=== PATIENT | female | born 1980 | race Hispanic/Latino ===

== ENCOUNTER 2018-08-17 17:58 | Emergency (ER) | payer BC ==
[~2018-08-17] VITALS: Ht 172.7 cm; Wt 86.2 kg
--- OUTSIDE RECORDS SUMMARY | 2018-08-17 18:01 | XMS REPORT | Clinical Summary ---
Author Author [facility] Address Unknown Phone Unavailable Care Team Providers Care Creche Attendant Name Role Phone Edin Dior MD PCP Unavailable Allergies No Known Allergies Medications End Date Status Medication Sig Dispensed Refills Start Date Active albuterol (ACCUNEB) 0.63 Take 3 mLs 75 mL 3 mg/3 mL nebulizer (0.63 mg 3 solution total) by nebulization every 4 (four) hours as needed for Wheezing. Active omeprazole (PRILOSEC) 20 TAKE 1 90 capsule 0 MG capsule CAPSULE BY 7 MOUTH DAILY Active montelukast (SINGULAIR) TAKE 1 TABLET 90 tablet 0 10 mg tablet BY MOUTH 7 EVERY DAY Active ADVAIR DISKUS 250-50 INHALE 1 PUFF 180 Inhaler 1 mcg/dose diskus inhaler BY MOUTH 7 TWICE DAILY Active Problems Patient Care Coordination Note Office Manager Executive Assistant No Abnormal Paps, Never Mammo Cc Office Manager Executive Assistant Beth Kwong Children 15, 11, 4 Problem Noted Date Family history of cancer 06/30/2015 Overview: Father prostate age 50.MGF age 65, PGM with unknown "stomach" cancer Left lower quadrant pain 06/30/2015 Overview: Premenstrual pain over a few months. Early 2015 Moderate persistent asthma 07/02/2013 Overview: persistent sx, now totally controlled with RLQ abdominal pain 07/02/2013 Overview: On and off, feels like gas. Wakes up in night, many times cannot pass. Discussed follow up with PUBLIC RELATIONS WRITER for abd pain. PAP 2015 or so Asthma exacerbation 03/25/2012 Overview: 03/2011 Hyperlipidemia, mixed Diabetes type 2, controlled Overview: A1c 6.4 2013--no follow up Gestational diabetes. 2010 Family History Medical History Relation Name Comments Cancer Father prostate Diabetes Father Diabetes Mother Relation Name Status Comments Brother Alive Daughter Alive Father Alive Mother Alive Sister Alive x2 Son Alive Social History Date Tobacco Use Types Packs/Day Years Used Quit: 06/29/2014 Former Smoker Cigarettes Alcohol Use Drinks/Week oz/Week Comments Yes occasionally Sex Assigned at Date Recorded Not on file Industry Job Start Date Occupation Not on file Not on file Not on file Travel End Travel History Travel Start No recent travel history available. Last Filed Vital Signs Not on file Plan of Treatment Health Maintenance Due Date Last Done Comments INFLUENZA VACCINE 11/11/2017 Results Not on fileafter 08/16/2017 Insurance Payer Benefit Subscriber ID Type Phone Address Plan / Group [employer] - [employer] C[employer] PPO xxxxxxxxxxx PPO
--- OUTSIDE RECORDS SUMMARY | 2018-08-17 18:02 | XMS REPORT | Encounter Summary ---
Author Organization Unknown Address [address] [place] [address] Phone [phone] Care Team Providers Care Egg Worker Name Role Phone Edin Dior MD 3 [phone] Reason for Visit Left Medical Complaint Instructions 1. Serous otitis media fluticasone 50 mcg/actuation nasal spray,suspension amoxicillin 875 mg tablet Discussion Note Pt is in NAD; Verbalizes understanding of all instructions with no questions at this time. Patient educational handouts: No information available. Plan of Care Patient Instructions Alternate with Ibuprofen and acetaminophen every 4hrs as needed for pain Proper hydration and rest. Take antibiotics with food and recommend start a probiotic to avoid GI discomfort. Take fluticasone as needed for nasal/ear congestion. Paoli one spray in each nostril twice a day. Take a warm, steamy shower, blow your nose thereafter, and spray in each nostril. Tilt your head up for about 10 seconds and breath through your mouth. Do not sniff or snort the medication in or else the medication will go to your throat and not be absorbed appropriately. Take medications as prescribed and follow up with a PCP within 2-3 if symptoms worsen as discussed. Reminders Provider Appointments None recorded. Lab None recorded. Referral None recorded. Procedures None recorded. Surgeries None recorded. Imaging None recorded. Medications Name Start Date Advair Diskus 250 mcg-50 mcg/dose powder for inhalation INHALE 1 PUFF PO BID amoxicillin 875 mg tablet Take 1 tablet every 12 hours by oral route as directed for 10 days. fluticasone 50 mcg/actuation nasal spray,suspension Paoli 1 spray every day by intranasal route as needed for 10 days. montelukast 10 mg tablet TK 1 T PO QD omeprazole 20 mg capsule,delayed release TK 1 C PO D ProAir HFA 90 mcg/actuation aerosol inhaler INHALE 2 PUFFS BY MOUTH EVERY 6 HOURS NEEDED FOR WHEEZING OR SHORTNESS OF BREATH (OR COUGH) Medications Administered None recorded. Vitals Height Weight BMI Blood Pressure 5 ft 8 in 195 lbs 29.6 133/84 Lab Results None recorded. Allergies Code Code System Name Reaction Severity Onset NKDA Problems Name Status Onset Date Source Streptococcal Sore Throat Active Encounter Procedures None recorded. Vaccine List Vaccine Type influenza, unspecified formulation 11/11/2015 MMR 04/02/20150.5 mL 05/02/20150.5 mL Tdap 08/18/20150.5 mL varicella 04/02/20150.5 mL 05/02/20150.5 mL Social History Smoking Status Never Smoker Past Encounters 06/07/2016 Serous Otitis Media Meagan Vinson, [facility]: [address] [place] [address], Ph. History of Present Illness Ear Complaint Reported By: Patient HPI: Location: left. Quality: ears feel full/plugged, muffled, dull, aching. Severity: continuous. Duration: constant; 1 week. Onset/Timing: abrupt onset. Context: no sick contacts, no recent swimming/water in ear, no exposure to second hand smoke, no head trauma, not grinding teeth, no recent air travel. Modifying factors: hurts to lie on, or pull on ear, hurts to chew, OTC medication, nothing gives relief. Associated Symptoms: no discharge from the ears, no nose/sinus problems, no ringing in the ears, no fever, no chills, no dizziness, no vertigo, no headache, no muscle aches, popping noise in the ears, earache Review of Systems:ROS as noted in the HPI Review of Systems Basic Reported By: Patient Physical Exam Adult Basic, Adult Female Complete Reported By: Patient Constitutional: General Appearance: healthy-appearing, well-nourished, well-developed. Level of Distress: NAD. Ambulation: ambulating normally Psychiatric: Mental Status: active and alert. Orientation: to time, to place, to person Skv-Tqom-Gipkn-Throat: Ears: no lesions on external ear, no outer ear tenderness, EACs clear, TM erythematous, TM bulging, middle ear fluid. Hearing: no hearing loss. Nose: no lesions on external nose, nares patent, no septal deviation, nasal passages clear, no sinus tenderness, no nasal discharge. Lips, Teeth, and Gums: no mouth or lip ulcers, no bleeding gums, normal dentition. Oropharynx: moist mucous membranes, no erythema, no exudates, tonsils not enlarged Neck: Neck: supple. Lymph Nodes: no cervical LAD Lungs: Respiratory effort: no dyspnea, no tachypnea, no use of accessory muscles, no intercostal retractions. Auscultation: breath sounds normal Cardiovascular: Heart Auscultation: RRR, no murmurs Neurologic: Gait and Station: normal gait, normal station
--- OUTSIDE RECORDS SUMMARY | 2018-08-17 18:02 | XMS REPORT | Encounter Summary ---
Author Organization Unknown Address [address] [place] [address] Phone [phone] Reason for Visit Medical Complaint; body aches, sore throat, swollen tonsils yesterday pm Instructions 1. Streptococcal sore throat penicillin V potassium 500 mg tablet strep throat: care instructions rapid strep group A, throat Discussion Note: None recorded. Plan of Care Patient Instructions Take antibiotic as prescribed. Handwashing. Increase fluid intake and plenty of rest. May take tynenol/motrin for pain. may use cloraseptic throat spray for sore throat. Gargles warm salt water, cepacol. Throw away old toothbrush after 2 days of antibiotic. Avoid sharing drinks/utensils. If no improvement in 3 days, or worsening of symptoms, see primary care physician or call clinic. Reminders Provider Appointments None recorded. Lab Rapid Strep Group a, Throat 07/06/2015 [facility] Referral None recorded. Procedures None recorded. Surgeries None recorded. Imaging None recorded. Medications Name Start Date penicillin V potassium 500 mg tablet Take 1 tablet(s) every 12 hours by oral route as directed for 10 days. Medications Administered None recorded. Vitals Height Weight BMI Blood Pressure 5 ft 8 in 193 lbs 29.3 130/82 Lab Results Date Name Result Description Value Range Status Rapid Strep Group a, Throat Result positive Swab Location Left and Right tonsillar pillars Allergies Name Reaction Severity Onset NKDA Problems Name Status Onset Date Source Streptococcal Sore Throat Active Encounter Procedures None recorded. Vaccine List Vaccine Type MMR 04/02/20150.5 mL 05/02/20150.5 mL varicella 04/02/20150.5 mL 05/02/20150.5 mL Social History Smoking Status Never Smoker Past Encounters 07/06/2015 Streptococcal Sore Throat Catherine Samaniego, [employer]: [address] [place] [address], Ph. History of Present Illness Throat-Oral Complaint Reported By: Patient HPI: Location: throat. Quality: sore throat. Severity: pain level 9/10. Duration: 1 days. Onset/Timing: sudden. Context: no sick contacts, no foreign travel, non-smoker. Modifying factors: OTC medication. Associated Symptoms: no sputum production, no shortness of breath, no wheezing, no change in number of pillows needed to sleep at night, no sweats, no significant weight gain, no significant weight loss, no morning cough, no vomiting, no diarrhea, no rash, no nausea, sore throat Review of Systems Basic Reported By: Patient Constitutional: Constitutional: no fever Eyes: Eyes: no eye complaints Kact-Pnli-Jqjsm-Throat: Ears: no ear complaints. Nose: no nose/sinus problems. Mouth/Throat: no bleeding gums, no mouth complaints, no teeth problems, sore throat Cardiovascular: Cardiovascular: no chest pain, no shortness of breath, no known heart murmur Respiratory: Respiratory: no cough, no wheezing, no shortness of breath Gastrointestinal: Gastrointestinal: no abdominal pain, no vomiting / diarrhea Genitourinary: Genitourinary: no urinary complaints, no discharge Musculoskeletal: Musculoskeletal: no muscle weakness, no arthralgias/joint pain, no back pain, muscle aches Skin: Skin: no abnormal / changing mole, no jaundice, no rashes Neurologic: Neurologic: no loss of consciousness, no weakness, no numbness, no seizures, no dizziness, no headaches Physical Exam Adult Basic, Adult Female Complete Constitutional: General Appearance: healthy-appearing, well-nourished, well-developed, overweight. Level of Distress: NAD. Ambulation: ambulating normally Psychiatric: Mental Status: active and alert. Orientation: to time, to place, to person Eyes: Lids and Conjunctivae: non-injected, no discharge, no pallor. Pupils: PERRLA. Corneas: grossly intact. EOM: EOMI. Lens: clear. Sclerae: non-icteric. Vision: acuity grossly intact Fre-Myif-Wnigw-Throat: Ears: no lesions on external ear, no outer ear tenderness, EACs clear, TMs clear. Hearing: no hearing loss. Nose: no lesions on external nose, nares patent, no septal deviation, nasal passages clear, no sinus tenderness, no nasal discharge. Lips, Teeth, and Gums: no mouth or lip ulcers, no bleeding gums, normal dentition. Oropharynx: moist mucous membranes, erythema, exudates, tonsils enlarged 2+ Neck: Neck: supple, trachea midline, no masses, FROM. Lymph Nodes: no supraclavicular LAD, anterior cervical LAD. Thyroid: no enlargement, non-tender, no nodules Lungs: Respiratory effort: no dyspnea, no tachypnea, no use of accessory muscles, no intercostal retractions. Auscultation: breath sounds normal Cardiovascular: Heart Auscultation: RRR, no murmurs. Neck vessels: no carotid bruits
--- OUTSIDE RECORDS SUMMARY | 2018-08-17 18:02 | XMS REPORT | Encounter Summary ---
Author Organization Unknown Address [address] [place] [address] Phone [phone] Reason for Visit Screening - TB; tb test Instructions 1. Tuberculosis screening PPD (purified protein derivative), skin test - Patient was advised to follow-up with [facility] within 48-72 hours. Tubersol 5 tub. unit/0.1 mL intradermal injection solution Discussion Note: None recorded. Patient educational handouts: No information available. Plan of Care Patient Instructions Please RT RC in 48-72 hours to have your PPD read. If not, it will be invalid and you will need to have it re placed. Reminders Provider Appointments None recorded. Lab PPD (Purified Protein Derivative), Skin Test 08/31/2015 [facility] Referral None recorded. Procedures None recorded. Surgeries None recorded. Imaging None recorded. Medications Name Start Date Advair Diskus 250 mcg-50 mcg/dose powder for inhalation INHALE 1 PUFF BY MOUTH VIA INHALER 2 (TWO) TIMES DAILY. montelukast 10 mg tablet omeprazole 20 mg capsule,delayed release penicillin V potassium 500 mg tablet ProAir HFA 90 mcg/actuation aerosol inhaler INHALE 2 PUFFS BY MOUTH EVERY 6 HOURS NEEDED FOR WHEEZING OR SHORTNESS OF BREATH (OR COUGH) Tubersol 5 tub. unit/0.1 mL intradermal injection solution Medications Administered Name Date Tubersol 5 tub. unit/0.1 mL intradermal injection solution Take 0 mL by intradermal route. [id number] Vitals None recorded. Lab Results Date Name Result Description Value Range Status 08/23/2015 Rubella IgG Ab, Quant Immunoassay, Serum or Plasma Rubella Antibodies, IgG 3.39 index immune >0.99 index Final 08/23/2015 Varicella-zoster Igg Ab Screen, Serum Varicella Zoster IgG 1431 index immune >165 index Final 08/23/2015 Mumps Virus IgG Ab, Quant, Immunoassay, Serum Mumps Abs, IgG 98.8 AU/mL immune >10.9 AU/mL Final 08/23/2015 Measles Virus IgG Ab, Quant, Immunoassay, Serum Below Low Normal Rubeola Ab, IgG <25.0 AU/mL immune >29.9 AU/mL Final 08/18/2015 Hepatitis C Ab, Rfpqjp-ni-zqlwni, Serum or Plasma Hep C Virus Ab <0.1 S/co ratio 0.0-0.9 S/co ratio Final Allergies Name Reaction Severity Onset NKDA Problems Name Status Onset Date Source Streptococcal Sore Throat Active Encounter Procedures None recorded. Vaccine List Vaccine Type MMR 04/02/20150.5 mL 05/02/20150.5 mL Tdap 08/18/20150.5 mL varicella 04/02/20150.5 mL 05/02/20150.5 mL Social History Smoking Status Never Smoker Past Encounters 08/31/2015 Tuberculosis Screening TERENCE Cristina: [address] [place] [address], Ph. 08/23/2015 Screening for Disorder TERENCE Starr: [address] [place] [address], Ph. 08/18/2015 Immunization; Screening for Disorder; Counseling TERENCE Starr: [address] [place] [address], Ph. History of Present Illness Screening Request - TB Reported By: Patient Screening Request: BCG No prior BCG vaccination. PPD No past history of postive TB skin test (PPD), No previous severe local reaction to TB skin test (PPD). OTHER No prior vaccines within last month Review of Systems Screening - TB Reported By: Patient Symptoms during past year > 2 weeks, NOT associated with specific illness?: unexplained or low grade fever No fever. night sweats No night sweats. unexplained weight loss > 5 lbs No unexplained weight loss. persistent cough No persistent cough. shortness of breath No shortness of breath. coughing up blood (hemoptysis) No coughing up blood (hemoptysis). unusual fatigue No unusual fatigue. loss of appetite No loss of appetite. swollen neck glands No swollen neck glands Physical Exam Screening General Appearance: General: well-developed, well-nourished, no acute distress
--- OUTSIDE RECORDS SUMMARY | 2018-08-17 18:02 | XMS REPORT | Encounter Summary ---
Author Organization Unknown Address [address] [place] [address] Phone [phone] Care Team Providers Care Maxillofacial Surgeon Name Role Phone Vijaya Hinds PRODUCTION REPRODUCTION MANAGER 3 [phone] Reason for Visit Medical Complaint Instructions 1. Streptococcal sore throat strep throat: care instructions penicillin V potassium 500 mg tablet rapid strep group A, throat 2. Cough cough: care instructions benzonatate 200 mg capsule 3. Body mass index 25-29 - overweight body mass index: care instructions 4. Elevated blood-pressure reading without diagnosis of hypertension elevated blood pressure: care instructions Discussion Note Pt is in NAD; Verbalizes understanding of all instructions with no questions at this time. Plan of Care Patient Instructions Stop mucinex cold. Alternate with Ibuprofen and acetaminophen every 4-6 hrs as needed for pain/fever/headache/sore throat. Proper hydration and rest. Take antibiotics with food and recommend start a probiotic to avoid GI discomfort. Do not share any utensils/cups, no kissing and change toothbrush after 24-48 hrs of antibiotic use. Take benzonatate for cough as directed. Take medications as prescribed. Follow up with your PCP within 2-3 days if symptoms worsen as discussed. Recommend follow a low sodium/fat/carb diet and exercise 30-45 mins/d 3-4 days a week once symptoms resolve. Recommend monitor BP at home and document, bring BP log to PCP for review. Reminders Provider Appointments None recorded. Lab Rapid Strep Group a, Throat 12/24/2017 [facility] Referral None recorded. Procedures None recorded. Surgeries None recorded. Imaging None recorded. Medications Name Start Date Advair Diskus 250 mcg-50 mcg/dose powder for inhalation INHALE 1 PUFF PO BID benzonatate 200 mg capsule Take 1 capsule 3 times a day by oral route as needed. famotidine 40 mg tablet Hemocyte-Plus 106 mg iron-1 mg capsule TK 1 C PO QD montelukast 10 mg tablet TK 1 T PO QD omeprazole 20 mg capsule,delayed release TK 1 C PO D penicillin V potassium 500 mg tablet Take 1 tablet every 12 hours by oral route as directed for 10 days. Medications Administered None recorded. Vitals Height Weight BMI Blood Pressure 5 ft 8 in 193 lbs 29.3 kg/m2 (1) 120/76 mm[Hg] (2) 120/76 mm[Hg] Lab Results Date Name Specimen Result Interpretation Description Value Range Status Address Rapid Strep Group a, Throat Result positive [facility]: [address] [place] [address] Swab Location Left and Right tonsillar pillars [facility]: [address] [place] [address] Allergies Code Code System Name Reaction Severity Status Onset NKDA Problems Name Status Onset Date Source Streptococcal Sore Throat Active 12/24/2017 Body Mass Index 25-29 - Overweight Active 12/24/2017 Anemia Active 12/24/2017 Asthma Active 12/24/2017 Gastroesophageal Reflux Disease Active 12/24/2017 Cough Active 12/24/2017 Elevated Blood-pressure Reading without Diagnosis of Hypertension Active 12/24/2017 Procedures None recorded. Vaccine List Vaccine Type influenza, unspecified formulation 11/12/2015 11/11/2017 MMR 04/02/20150.5 mL 05/02/20150.5 mL Tdap 08/18/20150.5 mL varicella 04/02/20150.5 mL 05/02/20150.5 mL Social History Smoking Status Never Smoker Past Encounters 12/24/2017 Streptococcal Sore Throat; Cough; Body Mass Index 25-29 - Overweight; Elevated Blood-pressure Reading without Diagnosis of Hypertension Meagan Vinson, [employer]-C: [address] [place] [address], Ph. History of Present Illness Throat-Oral Complaint Reported By: Patient HPI: Location: throat. Quality: sore throat, dry or hacking cough. Severity: moderate, pain level 3/10. Duration: 1 days. Onset/Timing: sudden. Context: no sick contacts, no foreign travel, non-smoker. Modifying factors: OTC medication. Associated Symptoms: no fever, no headache, no body aches, no sputum production, no shortness of breath, no wheezing, no change in number of pillows needed to sleep at night, no sweats, no significant weight gain, no significant weight loss, no morning cough, no vomiting, no diarrhea, no rash, no nausea, sore throat; dry cough Ssfjmcm-Naipl-Qmt Reported By: Patient HPI: Duration: 1 days. Context: no ill contacts, no tick/insect bites, no recent travel, no new medications. Associated Symptoms: no fever/chills, no headache, no muscle aches, no rash, no lethargy, cough; sore throat. Modifying Factors nothing gives relief Note:
Review of Systems:ROS as noted in the HPI Review of Systems Basic Reported By: Patient Physical Exam Adult Basic, Adult Female Complete Reported By: Patient Constitutional: General Appearance: healthy-appearing, well-nourished, well-developed, overweight. Level of Distress: NAD. Ambulation: ambulating normally Psychiatric: Mental Status: active and alert. Orientation: to time, to place, to person Eyes: Lids and Conjunctivae: non-injected, no discharge, no pallor. Corneas: grossly intact. Lens: clear Tgs-Jqti-Rkxcx-Throat: Ears: no lesions on external ear, no outer ear tenderness, EACs clear, TMs clear. Nose: no lesions on external nose, nares patent, no septal deviation, nasal passages clear, no sinus tenderness, no nasal discharge. Lips, Teeth, and Gums: no mouth or lip ulcers, no bleeding gums, normal dentition. Oropharynx: moist mucous membranes, no exudates, tonsils not enlarged, erythema Neck: Lymph Nodes: no cervical LAD Lungs: Respiratory effort: no dyspnea, no tachypnea, no use of accessory muscles, no intercostal retractions. Auscultation: breath sounds normal Cardiovascular: Heart Auscultation: RRR, no murmurs Neurologic: Gait and Station: normal gait, normal station
--- OUTSIDE RECORDS SUMMARY | 2018-08-17 18:02 | XMS REPORT | Encounter Summary ---
Author Organization Unknown Address [address] [place] [address] Phone [phone] Reason for Visit Screening - Lab; MMR and varicella titer. Instructions 1. Screening for disorder mumps virus IgG Ab, quant, immunoassay, serum rubella IgG Ab, quant immunoassay, serum or plasma measles virus IgG Ab, quant, immunoassay, serum varicella-zoster igg Ab screen, serum Discussion Note: None recorded. Patient educational handouts: No information available. Plan of Care Reminders Provider Appointments None recorded. Lab Mumps Virus IgG Ab, Quant, Immunoassay, Serum 08/23/2015 [facility] Rubella IgG Ab, Quant Immunoassay, Serum or Plasma 08/23/2015 [facility] Measles Virus IgG Ab, Quant, Immunoassay, Serum 08/23/2015 [facility] Varicella-zoster Igg Ab Screen, Serum 08/23/2015 [facility] Referral None recorded. Procedures None recorded. Surgeries None recorded. Imaging None recorded. Medications None recorded. Medications Administered None recorded. Vitals None recorded. Lab Results None recorded. Allergies Name Reaction Severity Onset NKDA Problems Name Status Onset Date Source Streptococcal Sore Throat Active Encounter Procedures None recorded. Vaccine List Vaccine Type MMR 04/02/20150.5 mL 05/02/20150.5 mL varicella 04/02/20150.5 mL 05/02/20150.5 mL Social History Smoking Status Never Smoker Past Encounters 08/23/2015 Screening for Disorder Catherine Samaniego, [facility]: [address] [place] [address], Ph. History of Present Illness Lab Request Reported By: Patient HPI: Lab Request (normal) no symptoms, No medical complaints Review of Systems Basic Reported By: Patient Constitutional: Constitutional: no fever Physical Exam Screening General Appearance: General: well-developed, well-nourished, no acute distress
--- OUTSIDE RECORDS SUMMARY | 2018-08-17 18:02 | XMS REPORT | Continuity of Care Document ---
Author Author [employer] Address Unknown Phone Unavailable Care Team Providers Care Machine Repairer Name Role Phone [facility] Unavailable Unavailable Problems Problem Status Onset Date Classification Date Reported Comments Source Elevated blood-pressure reading without diagnosis of hypertension 12/24/2017 Diagnosis 12/24/2017 [facility] Body mass index 25-29 - overweight 12/24/2017 Diagnosis 12/24/2017 [facility] Streptococcal sore throat 12/24/2017 Diagnosis 12/24/2017 [facility] Streptococcal Sore Throat 12/24/2017 Problem 12/24/2017 [facility] Body Mass Index 25-29 - Overweight 12/24/2017 Problem 12/24/2017 [facility] Anemia 12/24/2017 Problem 12/24/2017 [facility] Asthma 12/24/2017 Problem 12/24/2017 [facility] Gastroesophageal Reflux Disease 12/24/2017 Problem 12/24/2017 [facility] Cough 12/24/2017 Problem 12/24/2017 [facility] Elevated Blood-pressure Reading without Diagnosis of Hypertension 12/24/2017 Problem 12/24/2017 [facility] Serous otitis media 06/07/2016 Diagnosis 06/07/2016 [facility] Tuberculosis screening 08/31/2015 Diagnosis 08/31/2015 [facility] Screening for disorder 08/18/2015 Diagnosis 08/31/2015 [facility] Immunization 08/18/2015 Diagnosis 08/31/2015 [facility] Counseling 08/18/2015 Diagnosis 08/31/2015 [facility] Medications Medication Details Route Status Patient Instructions Ordering Provider Order Date Source Penicillin V Potassium 500 MG Oral Tablet penicillin V potassium 500 mg tablet Take 1 tablet every 12 hours by oral route as directed for 10 days. Active [facility] Fluticasone propionate 0.25 MG/ACTUAT / salmeterol 0.05 MG/ACTUAT Dry Powder Inhaler Advair Diskus 250 mcg-50 mcg/dose powder for inhalation INHALE 1 PUFF PO BID Active [facility] montelukast 10 MG Oral Tablet montelukast 10 mg tablet TK 1 T PO QD Active [facility] Omeprazole 20 MG Delayed Release Oral Capsule omeprazole 20 mg capsule,delayed release TK 1 C PO D Active [facility] 200 ACTUAT Albuterol 0.09 MG/ACTUAT Metered Dose Inhaler [ProAir] ProAir HFA 90 mcg/actuation aerosol inhaler INHALE 2 PUFFS BY MOUTH EVERY 6 HOURS NEEDED FOR WHEEZING OR SHORTNESS OF BREATH (OR COUGH) Active [facility] Purified Protein Derivative of Tuberculin 50 UNT/ML Injectable Solution [Tubersol] Tubersol 5 tub. unit/0.1 mL intradermal injection solution Active [facility] Amoxicillin 875 MG Oral Tablet amoxicillin 875 mg tablet Take 1 tablet every 12 hours by oral route as directed for 10 days. Active [facility] Fluticasone propionate 0.05 MG/ACTUAT Metered Dose Nasal [place] fluticasone 50 mcg/actuation nasal spray,suspension [place] 1 spray every day by intranasal route as needed for 10 days. Active [facility] benzonatate 200 MG Oral Capsule benzonatate 200 mg capsule Take 1 capsule 3 times a day by oral route as needed. Active [facility] Famotidine 40 MG Oral Tablet famotidine 40 mg tablet Active [facility] Hemocyte-Plus 106 mg iron-1 mg capsule Hemocyte-Plus 106 mg iron-1 mg capsule TK 1 C PO QD Active [facility] Allergies, Adverse Reactions, Alerts No Known Medication Allergies Immunizations Immunization Date Given Site Status Last Updated Comments Source influenza, unspecified formulation 11/11/2017 completed [facility] influenza, unspecified formulation 11/12/2015 completed [facility] Tdap 08/18/2015 completed [facility] varicella 05/02/2015 completed [facility] MMR 05/02/2015 completed [facility] varicella 04/02/2015 completed [facility] MMR 04/02/2015 completed [facility] Results Order Name Results Value Reference Range Date Interpretation Comments Source RESULT positive 12/24/2017 [facility] SWAB LOCATION Left and Right tonsillar pillars 12/24/2017 [facility] Measles virus IgG Ab [Units/volume] in Serum by Immunoassay Measles virus IgG Ab [Units/volume] in Serum by Immunoassay <25.0 immune >29.9 08/25/2015 below low normal [facility] Mumps virus IgG Ab [Units/volume] in Serum by Immunoassay Mumps virus IgG Ab [Units/volume] in Serum by Immunoassay 98.8 immune >10.9 08/25/2015 [facility] Rubella virus IgG Ab [Units/volume] in Serum by Immunoassay Rubella virus IgG Ab [Units/volume] in Serum by Immunoassay 3.39 immune >0.99 08/25/2015 [facility] Varicella zoster virus IgG Ab [Units/volume] in Serum Varicella zoster virus IgG Ab [Units/volume] in Serum by Immunoassay 1431 immune >165 08/25/2015 [facility] Hepatitis C virus Ab Signal/Cutoff in Serum or Plasma by Immunoassay Hepatitis C virus Ab Signal/Cutoff in Serum or Plasma by Immunoassay <0.1 0.0 - 0.9 08/20/2015 [facility] RESULT positive 07/06/2015 [facility] SWAB LOCATION Left and Right tonsillar pillars 07/06/2015 [facility] Pathology Reports No Data Provided for This Section Diagnostic Reports No Data Provided for This Section Consultation Notes No Data Provided for This Section Discharge Summaries No Data Provided for This Section History and Physicals No Data Provided for This Section Vital Signs Vital Sign Value Date Comments Source Diastolic (mm Hg) 76 12/24/2017 [facility] Height 68 12/24/2017 [facility] Systolic (mm Hg) 120 12/24/2017 [facility] Weight 193 12/24/2017 [facility] Diastolic (mm Hg) 84 06/07/2016 [facility] Height 68 06/07/2016 [facility] Systolic (mm Hg) 133 06/07/2016 [facility] Weight 195 06/07/2016 [facility] Diastolic (mm Hg) 82 07/06/2015 [facility] Height 68 07/06/2015 [facility] Systolic (mm Hg) 130 07/06/2015 [facility] Weight 193 07/06/2015 [facility] Encounters Location Location Details Encounter Type Encounter Number Reason For Visit Attending Provider ADM Date DC Date Status Source [place] - [facility] - [id number] Samaniego, PLUMBING INSPECTOR: [address] [place] [address], Ph. [id number] Catherine Samaniego 07/06/2015 [facility] [place] [facility] - [id number] Samaniego, PLUMBING INSPECTOR: [address] [place] [address], Ph. [id number] Catherine Danette 08/18/2015 [facility] [place] [facility] - [id number] Catherine Samaniego, PLUMBING INSPECTOR: [address], [place] [address], Ph. [id number] Catherine Danette 08/23/2015 [facility] [place] [facility] - [id number] Catherine Samaniego, PLUMBING INSPECTOR: [address], [place] [address], Ph. [id number] Catherine Danette 08/23/2015 [facility] [place] [facility] - [id number] Janamaribeth Copeland, PLUMBING INSPECTOR: [address], [place] [address], Ph. [phone] [id number] Janamaribeth Copeland 08/31/2015 [facility] [place] [facility] - [id number] Meagan Vinson, PLUMBING INSPECTOR-C: [address], [place] [address], Ph. [id number] Meagan Vinson 06/07/2016 [facility] [place] [facility] - [id number] Meagansu Vinson, PLUMBING INSPECTOR-C: [address], [place] [address], Ph. [id number] Meagan Vinson 12/24/2017 [facility] Procedures No Data Provided for This Section Assessment and Plan No Data Provided for This Section Plan of Care No Data Provided for This Section Social History Social History Date Source Smoking Status Never Smoker 07/06/2015 [facility] Family History No Data Provided for This Section Advance Directives No Data Provided for This Section Functional Status No Data Provided for This Section
--- OUTSIDE RECORDS SUMMARY | 2018-08-17 18:03 | XMS REPORT | Summary of Care ---
Author Author NANCY BARTLETT N.P. Organization Unknown Address Unknown Phone Unavailable Care Team Providers Care Kitchen Lead Name Role Phone NANCY BARTLETT N.P. Unavailable Unavailable NANCY MARTIN Unavailable Unavailable Unavailable Unavailable Functional Status Name Dates Details Functional status health issues are not documented Status: Name Dates Details Cognitive status health issues are not documented Status: Problems Name Dates Details Encounter to establish care with new doctor (V65.8, Z76.89) Status: Active Hemoglobin low (285.9, D64.9) Status: Active Low hemoglobin (285.9, D64.9) Status: Active Encounter for annual routine gynecological examination (V72.31, Z01.419) Status: Active Elevated platelet count (790.6, R79.89) Status: Active Encounter to discuss test results (V65.49, Z71.2) Status: Active Mixed hyperlipidemia (272.2, E78.2) Status: Active Abnormal skin growth (239.2, D49.2) Status: Active Abnormal menses (626.9, N92.6) Status: Active Asthma, mild intermittent (493.90, J45.20) Status: Active Gastroesophageal reflux disease, esophagitis presence not specified (530.81, K21.9) Status: Active Anemia (285.9, D64.9) Status: Active Mild intermittent asthma with acute exacerbation (493.92, J45.21) Status: Active Abnormal platelets (287.1, D69.1) Status: Active Medications Name Dates Details Montelukast Sodium 10 MG Oral Tablet TAKE 1 TABLET BY MOUTH AT BEDTIME Quantity: 90 NANCY BARTLETT N.P. * Start : 05-Apr-2017 Active ProAir HFA 108 (90 Base) MCG/ACT Inhalation Aerosol Solution INHALE 1 TO 2 PUFFS EVERY 4 TO 6 HOURS NEEDED. * Quantity: 1 Refills: 0 NANCY BARTLETT N.P. Active 8.5 GM Inhaler Fluticasone-Salmeterol 250-50 MCG/DOSE Inhalation Aerosol Powder Breath Activate d INHALE 1 PUFF EVERY 12 HOURS. * Quantity: 1 Refills: 5 TRI N.P., NANCY Active 60 Each Pack Vitamin B-12 500 MCG Sublingual Tablet Sublingual * Refills: 0 * Start : 25-Jan-2017 Active Famotidine 20 MG Oral Tablet TAKE 1 TABLET BY MOUTH EVERYDAY AT BEDTIME * Quantity: 90 Refills: 0 BARTLETT N.P., NANCY * Start : 10-Jun-2017 Active Allergies and Adverse Reactions Name Dates Details No Known Allergies (Allergy) Status: Active Past Medical History Name Dates Details History of asthma (V12.69, Z87.09) Status: Resolved Procedures Procedure Dates Details [QLH] TSH, 3RD GENERATION W/REFLEX TO FT4 Date: 30-May-2018 [QLH] CBC (INCLUDES DIFF/PLT) Date: 30-May-2018 [QLH] CMP W/EGFR Date: 30-May-2018 [QH] LIPID PANEL WITH REFLEX TO DIRECT LDL Date: 30-May-2018 [Q] IRON, TIBC AND FERRITIN PANEL Date: 30-May-2018 [QLH] VITAMIN B12 Date: 30-May-2018 [QLH] VITAMIN D, 25-HYDROXY, LC/MS/MS Date: 30-May-2018 History of No history of surgery Completed Immunization Name Dates Details Immunizations not documented Family History Name Dates Details Family history of malignant neoplasm of cervix (V16.49, Z80.49) Status: Active Name Dates Details Family history of malignant neoplasm of prostate (V16.42, Z80.42) Status: Active Social History Name Dates Details - Status: Name Dates Details Current some day smoker Vital Signs Date Test Result Details No Known Vitals to report Results Date Description Value Details Results not documented Plan of Care Name Dates Details Planned Observations Planned Goals not documented Interventions Provided Medication Changes* Famotidine 20 MG Oral Tablet - Renew Instructions Name Dates Details Instructions not documented Encounters Appointment; NANCY BARTLETT NP Encounter Diagnosis: Problem not documented On: 16-Oct-2016 10:00 Appointment; FRANSICO PETERSON M.D. Encounter Diagnosis: Problem not documented On: 19-Dec-2016 14:30 Appointment; Stef Greenberg M.D. Encounter Diagnosis: Problem not documented On: 25-Jan-2017 9:45 Appointment; NANCY BARTLETT NP Encounter Diagnosis: Problem not documented On: 10-Jun-2017 8:30 Appointment; NANCY BARTLETT NP Encounter Diagnosis: Problem not documented On: 10-Oct-2017 9:30 Appointment; NANCY BARTLETT NP Encounter Diagnosis: Problem not documented On: 30-May-2018 7:45
[2018-08-17] MEDS ORDERED: SODIUM CHLORIDE 0.9% 1000ML 1,000 ML IV STA (18:11)
[2018-08-17] MEDS ORDERED: DIATRIZOATE MEGL/DIATRIZOA SOD 30 ML BTL PO ONE (18:28)
[2018-08-17 18:50] LABS: BASOPHILS % 0.3 % (0.0-1.0); EOSINOPHILS # (AUTO) 0.2 (0.0-0.4); EOSINOPHILS % 1.2 % (0.0-6.0); HEMATOCRIT 36.8 % (34.2-44.1); HEMOGLOBIN 12.9 g/dL (12.0-16.0); LYMPHOCYTES # (AUTO) 2.2 (1.0-3.2); LYMPHOCYTES % 15.8 % (18.0-39.1); MEAN CORPUSCULAR HEMOGLOBIN 30.8 pg (28-32); MEAN CORPUSCULAR HGB CONC 35.1 g/dL (31-35); MEAN CORPUSCULAR VOLUME 87.8 fL (81-99); MONOCYTES # (AUTO) 0.9 (0.2-0.8); MONOCYTES % 6.5 % (4.4-11.3); NEUTROPHILS # (AUTO) 10.5 (2.1-6.9); NEUTROPHILS % 75.8 % (38.7-80.0); PLATELET COUNT 366 x10e3/uL (140-360); RED BLOOD COUNT 4.19 x10e6/uL (3.6-5.1)
[2018-08-17 18:50] LABS: BILIRUBIN,URINE NEGATIVE (NEGATIVE); CLARITY,URINE CLEAR (CLEAR); COLOR,URINE YELLOW (YELLOW); KETONES,URINE NEGATIVE (NEGATIVE); LEUKOCYTE ESTERASE ,URINE NEGATIVE (NEGATIVE); NITRITE,URINE NEGATIVE (NEGATIVE); PROTEIN,URINE DIPSTICK TRACE (NEGATIVE); URINE UROBILINOGEN 0.2 mg/dL (0.2 - 1)
[2018-08-17 18:58] LABS: PREGNANCY TEST, URINE NEGATIVE (NEGATIVE)
[2018-08-17 19:00] LABS: ALANINE AMINOTRANSFERASE 15 IU/L (0-55); ALBUMIN 3.6 g/dL (3.5-5.0); ALBUMIN/GLOBULIN RATIO 1.1 (0.8-2.0); ALKALINE PHOSPHATASE 73 IU/L (40-150); AMYLASE 24 U/L (25-125); ANION GAP 15.7 mmol/L (8-16); BLOOD UREA NITROGEN 7 mg/dL (7-26); BUN/CREATININE RATIO 11 (6-25); CALCIUM 9.2 mg/dL (8.4-10.2); CARBON DIOXIDE 23 mmol/L (22-29); CHLORIDE 103 mmol/L (98-107); CREATININE, SERUM 0.66 mg/dL (0.57-1.11); EST GLOMERULAR FILTRATION RATE > 60 ML/MIN (60-); GLUCOSE 89 mg/dL (74-118); LIPASE 12 U/L (8-78); POTASSIUM 3.7 mmol/L (3.5-5.1); SODIUM 138 mmol/L (136-145)
[2018-08-17] MEDS ORDERED: ONDANSETRON HCL INJ 2MG/ML 2ML 2 MG/ML VIAL IV ONE (19:00)
[2018-08-17] MEDS ORDERED: MORPHINE SULFATE INJ 4 MG/ML INJ 1ML IV ONE (19:00)
[2018-08-17 19:12] LABS: BACTERIA,URINE FEW /HPF; EPITHELIAL CELLS,URINE MODERATE /LPF; WBC,URINE (MAN) 0-5 /HPF (0-5)
[2018-08-17] MEDS ORDERED: SODIUM CHLORIDE 0.9% 50ML 50 ML ONE (19:18)
[2018-08-17] MEDS ORDERED: IOPAMIDOL 370 MG/ML 200 ML INFUS..BTL INJ ONE (19:19)
--- NOTE | 2018-08-17 20:25 | Diagnostic Imaging Report ---
EXAM: CT Abdomen and Pelvis WITH contrast INDICATION: ^LLQ abdominal pain with diarrhea r/o diverticulitis ^[id number] ^1931 ^Y COMPARISON: None. TECHNIQUE: Abdomen and pelvis were scanned utilizing a multidetector helical scanner from the lung base to the pubic symphysis after administration of IV contrast. Coronal and sagittal reformations were obtained. Dose modulation, iterative reconstruction, and/or weight based adjustment of the mA/kV was utilized to reduce the radiation dose to as low as reasonably achievable. Routine protocol was performed. Scan was performed when during portal venous phase. IV CONTRAST: 100 mL of Isovue-370 ORAL CONTRAST: Gastrografin COMPLICATIONS: None RADIATION DOSE: Total DLP: 595.18 mGy*cm Estimated effective dose: (DLP x 0.015 x size factor) mSv CTDIvol has been reviewed. It is below the limits set by the Radiation Protocol Committee (RPC). FINDINGS: LINES and TUBES: None. LOWER THORAX: Right middle lobe and lingular linear atelectasis/scarring. Otherwise, unremarkable. HEPATOBILIARY: Right hepatic lobe subcentimeter hypodensities too small to characterize (series 2, image 23). No focal hepatic mass. No biliary ductal dilation. GALLBLADDER: No radio-opaque stones or sludge. No wall thickening. SPLEEN: No splenomegaly. PANCREAS: No focal masses or ductal dilatation. ADRENALS: No adrenal nodules KIDNEYS/URETERS: Kidneys enhance symmetrically. No hydronephrosis. No cystic or solid mass lesions. No stones. GI TRACT: No abnormal distention or evidence of bowel obstruction. Colonic diverticulosis with wall thickening and surrounding inflammation in left lower quadrant, representing diverticulitis. Appendix is normal. PELVIC ORGANS/BLADDER: Unremarkable. LYMPH NODES: No lymphadenopathy. VESSELS: Unremarkable. PERITONEUM / RETROPERITONEUM: No free air or fluid. Peritoneal thickening in left lower quadrant. BONES: Unremarkable. SOFT TISSUES: Unremarkable. IMPRESSION: 1. Colonic diverticulosis with evidence of diverticulitis in left lower quadrant. No evidence of perforation or abscess formation. Signed by: Dr. Abimael Colmenares MD on 08/17/2018 8:22 PM
[2018-08-17] MEDS ORDERED: METRONIDAZOLE 500 MG TAB PO ONE (21:30)
[2018-08-17] MEDS ORDERED: DICYCLOMINE HCL 20 MG TAB PO SCH (21:30)
[2018-08-17] MEDS ORDERED: CIPROFLOXACIN 500 MG TAB PO SCH (21:30)
[2018-08-17 22:34] VITALS: BP 109/70
== END 2018-08-17 22:50 | disposition home or self-care (01) ==
LOC: ER 17:58
DX: R10.32 Left lower quadrant pain (principal); R11.0 Nausea; A08.4 Viral intestinal infection, unspecified; K57.92 Diverticulitis of intestine, part unspecified, without perforation or abscess without bleeding
CPT/HCPCS: 36415; 74177; 80053; 81001; 81025; 82150; 83690; 85025; 96374; 96375; 99284; J2270; J2405; J7030; Q9967